=== PATIENT | female | born 1965 | race Caucasian/White ===

== ENCOUNTER 2016-07-13 02:46 | Inpatient (IN) | payer OTHER, SELFPAY ==
[~2016-07-13] VITALS: Ht 165.1 cm; Wt 104.0 kg
--- NOTE | ~2016-07-13 | HP ---
PATIENT'S NAME: ALLI LOPEZ [facility] AGE: 51 Y [address] ROOM: [address] [address] LOCATION: GPCU ADMIT DATE: 07/13/2016 History & Physical DISCHARGE DATE: FAMILY PHYSICIAN: TREE COVARRUBIAS MD ATTENDING PHYSICIAN: REMI QUIROZ DATE OF SERVICE: CHIEF COMPLAINT: Left jaw pain and left shoulder pain. HISTORY OF PRESENT ILLNESS: This is a 51-year-old female with a past history of hypertension. The patient states that she woke up early this morning with pounding sensation in her chest. The patient was also cold and clammy and felt diaphoretic at that point of time. She then started having left jaw pain. She currently rates her pain as a 3/10 in intensity. She still has a left jaw pain. She also complains of pain between her shoulder blades radiating to her back. She denies any chest pain currently. Denies any abdominal pain, diarrhea, or constipation. She states that while getting to the ER, she was nauseous and vomited once prior to getting to the ER. Denies any lightheadedness. Denies any head trauma, loss of consciousness, or seizures. Denies any fever history. No other complaints at this point in time. REVIEW OF SYSTEMS: A 10-point review of systems was done and was otherwise negative except as mentioned above. HOME MEDICATIONS: Per JUN. ALLERGIES: REVIEWED TO LATEX, CELEBREX, AND ANAPROX. PAST MEDICAL HISTORY: 1. Chronic back pain. 2. Headaches. 3. Past history of hypertension, resolved with weight loss. PAST SURGICAL HISTORY: Reviewed. 1. D and C. 2. x4. 3. Epidural steroid injection. 4. Cholecystectomy. PATIENT'S NAME: ALLI LOPEZ [facility] AGE: 51 Y [address] ROOM: [address] [address] LOCATION: GPCU ADMIT DATE: 07/13/2016 History & Physical DISCHARGE DATE: FAMILY PHYSICIAN: TREE COVARRUBIAS MD ATTENDING PHYSICIAN: REMI QUIROZ 5. Left forearm surgery. 6. Hysterectomy. SOCIAL HISTORY: Denies smoking, use of occasional alcohol is reported. FAMILY HISTORY: Father with heart disease. No history of cancer reported. PHYSICAL EXAMINATION: VITAL SIGNS: Temperature 98.7, pulse 100 and regular, respirations 16, blood pressure 139/84, saturation 96% on room air. GENERAL: The patient is alert and oriented x3. Follows all commands, in no acute distress. HEENT: Head: Normocephalic and atraumatic. Pupils are equal, round, and reactive to light. Extraocular muscles are intact. Oropharynx moist. No tenderness to palpation, left jaw. No tenderness to palpation, temporal areas. NECK: Supple. No nuchal rigidity. HEART: Regular rate and rhythm. LUNGS: Clear to auscultation bilaterally. ABDOMEN: Soft, nontender, nondistended. Bowel sounds are present. EXTREMITIES: No clubbing, cyanosis, or edema. VASCULAR: Pulses are 2+ distally bilaterally. NEUROLOGIC: The patient is alert and oriented x3. She follows all commands, moves all extremities. Cranial nerves 2 through 12 are grossly intact. Deep tendon reflexes are 2+/4. SPINE: No tenderness to palpation in the cervical, thoracic, or lumbosacral spine. DIAGNOSTIC STUDIES: EKG was done in the ER. Initial EKG showed moderate ST depression. A repeat EKG done later showed resolution of changes and no acute ST changes. It shows sinus rhythm with a rate of 98 beats per minute. A 2D echo is pending at this point of time. CPK 143, subsequently 140. Troponin I less than 0.04 and subsequently was 0.094. CBC showed a white count of 8.3, hemoglobin 14.7, hematocrit 42.8, platelets 189. CMP showed sodium 141, potassium 2.7, chloride 100, bicarb 26, BUN 16, creatinine 1.2, glucose 165, calcium 9.6, total protein 7.9, albumin 4.1, AST 23, ALT 31, alkaline phosphatase 60, total bilirubin 0.6, magnesium 1.6, anion gap 17.7, globulin 3.8. GFR 47, PT 10.4, INR 1.0, and PTT 26, CK-MB 2.2. Chest x-ray was done and showed no acute cardiopulmonary abnormality. ASSESSMENT AND PLAN: A 51-year-old female presenting with chest and jaw pain. PATIENT'S NAME: ALLI LOPEZ [facility] AGE: 51 Y [address] ROOM: [address] [address] LOCATION: [facility] ADMIT DATE: 07/13/2016 History & Physical DISCHARGE DATE: FAMILY PHYSICIAN: TREE COVARRUBIAS MD ATTENDING PHYSICIAN: REMI QUIROZ 1. [id number] elevation myocardial infarction. The patient has elevated cardiac enzymes. She complains of chest discomfort radiating to middle of her back and into her jaw. I will place her on the ACS protocol. She is currently on a heparin drip. We will get a Cardiology consult. A 2D echo will be obtained in the morning. We will trend cardiac enzymes q.6 hours x3. Further recommendations per Cardiology. 2. History of hypertension. The patient had history of hypertension in the past, but is not currently on any medication. She states that she lost weight and subsequently is off medications. Monitor her blood pressure. 3. Hypokalemia, unclear etiology. We will replace KCl. Evaluate for hypokalemia. 4. Deep vein thrombosis prophylaxis. The patient is currently on heparin GTT. 5. Code status: Full code. Discussed with the patient at the time of admission. 6. History of reactive airway disease, stable for now. 7. History of chronic back pain. Continue on home medications. REMI QUIROZ MD MT/dawna /[id number] D: [id number] T: [id number] HISTORY & PHYSICAL
--- NOTE | ~2016-07-13 | CON ---
PATIENT'S NAME: ALLI LOPEZ [facility] AGE: 51 Y [address] ROOM: [place] [id number] LOCATION: GPCU ADMIT DATE: 07/13/2016 Consultation DISCHARGE DATE: FAMILY PHYSICIAN: TREE COVARRUBIAS MD ATTENDING PHYSICIAN: REMI QUIROZ DATE OF CONSULTATION: 07/13/2016 REFERRING PHYSICIAN: Denae Murdock MD CARDIOLOGY CONSULTATION REASON FOR CARDIOLOGY CONSULTATION: Chest pain. HISTORY OF PRESENT ILLNESS: This is a 51-year-old female who woke up with a rapid irregular heart rate. She did not actually check her pulse, but she did vomit twice on her way to the hospital for evaluation. She also had complaints of jaw pain as well as pain between her scapula. She states she has never had this type of pain before in her past. She did undergo a stress test about 5 years ago and was recently diagnosed with hypertension, after she gained 12 pounds following steroid administration over the summer for respiratory issues. She denies abdominal pain or diarrhea. She also denies presyncope or syncope. PAST MEDICAL HISTORY: 1. Hypertension. 2. Chronic back pain. 3. History of headaches. PAST SURGICAL HISTORY: 1. x4. 2. Cholecystectomy. 3. D and C. 4. Left forearm surgery. 5. Hysterectomy. FAMILY HISTORY: The patient's mother had a history of hypothyroidism as well as autoimmune disorder. Her father had a history of congestive heart failure and coronary artery disease. Also of note, her mother had a history of breast cancer. She has one sibling with a history of breast cancer. SOCIAL HISTORY: The patient is a former cigarette smoker. She smoked half a pack per day for about four years and quit smoking in 1984. She admits to alcohol use on 1 day PATIENT'S NAME: ALLI LOPEZ [facility] AGE: 51 Y [address] ROOM: [place] [address] LOCATION: GPCU ADMIT DATE: 07/13/2016 Consultation DISCHARGE DATE: FAMILY PHYSICIAN: TREE COVARRUBIAS MD ATTENDING PHYSICIAN: REMI QUIROZ a week and on those days, she will have one drink at a time. She denies illicit drug use. CURRENT MEDICATIONS: 1. Dulera 200/5 mcg 2 puffs inhaled twice daily. 2. Heparin IV per ACS protocol. 3. Benadryl 25 mg p.o. on-call to the catheterization lab. 4. Levothyroxine 25 mcg p.o. daily. 5. Lopressor 25 mg p.o. twice daily. 6. Neurontin 300 mg p.o. twice daily. 7. Valium 5 mg p.o. head and neck surgeon to the catheterization lab. ALLERGIES: MEDICATION ALLERGIES INCLUDE: CODEINE CAUSING NAUSEA AND VOMITING. PERCOCET CAUSING NAUSEA AND VOMITING. NAPROXEN CAUSING ANAPHYLAXIS. MOBIC CAUSING HIVES. CELEBREX CAUSING HIVES. VIOXX CAUSING HIVES WELL BANANA, LATEX, AND AVOCADO CAUSING ITCHING. SHE ALSO HAS NOTED WEIGHT GAIN ON LYRICA. REVIEW OF SYSTEMS: Pertinent positive review of systems are listed in the HPI. All other review of systems evaluated and negative. LABORATORY DATA AND IMAGING STUDIES: Diagnostics: CMS evaluation shows a sodium of 141, potassium 2.7, BUN of 16, creatinine 1.2, and glucose of 165. She has a magnesium of 1.6. Lipid evaluation showed a total cholesterol of 192, triglycerides are 133, HDL of 49, and LDL of 117. She has a D-dimer of 0.77. CBC evaluation shows a white blood cell count of 8.3, hemoglobin of 14.7, hematocrit of 42.8, and platelets of 189,000. Cardiac enzyme trend shows a CPK of 143, then 140, then 127. CK- MB of 2.0, then 2.2, then 2.1, and troponin I of less than 0.04, then 0.094, and finally 0.102. PHYSICAL EXAMINATION: VITAL SIGNS: Temperature 98.4, pulse 90, respirations 18, blood pressure 131/83, and O2 saturation 93% on room air. The patient weighs 104 kg. SKIN: [place], warm, and dry. EYES: Sclerae clear. No xanthelasmas. ENT: Oral mucosa is pink and moist. No jugular venous distention or carotid bruits. CHEST: Respirations are even and unlabored. LUNGS: Clear to auscultation. HEART: Regular rate and rhythm. Normal S1 and S2. No murmurs, rubs, or gallops. ABDOMEN: Soft and nontender. MUSCULOSKELETAL: Gait is normal. PATIENT'S NAME: ALLI LOPEZ [facility] AGE: 51 Y [address] ROOM: [address] [address] LOCATION: GPCU ADMIT DATE: 07/13/2016 Consultation DISCHARGE DATE: FAMILY PHYSICIAN: TREE COVARRUBIAS MD ATTENDING PHYSICIAN: REMI QUIROZ EXTREMITIES: Peripheral pulses palpable. PSYCHIATRIC: Alert and oriented. Mood and affect are appropriate. IMPRESSION AND PLAN: Per Dr. Murdock: 1. [id number] myocardial infarction. 2. Hypertension. 3. Hypokalemia. Currently being replaced orally by the Hospitalist Service. Plan will be to proceed with a heart catheterization to fully evaluate coronary anatomy with a possible percutaneous intervention if needed. We will also check an echocardiogram to fully evaluate ejection fraction as well as to look for wall motion or valvular abnormalities. We will start Lipitor 80 mg p.o. daily as well as normal saline at 150 mL/h, and an aspirin 81 mg p.o. daily. We will continue to monitor, evaluate, and treat as appropriate. Thank you for this consult. Thank you for allowing [facility] to interact in the care of this patient. STEVO COOK APRN FOR PAULO-MD THIERRY PEARL/dawna /[id number] d: 07/13/16 1717 t: 07/19/16 1754, CONSULTATION REPORT
--- NOTE | ~2016-07-13 | ECHO ---
Transthoracic Echocardiography Report (TTE) Demographics Patient Name ALLI LOPEZ Date of Study 07/13/2016 J Patient Number [id number] Visit Number [id number] Date of 1965 Room Number G6307 Gender Female Number Age 51 year(s) Referring Kaitlyn Betts MD Roller Printing Supervisor Khadijah Emmanuel RVT Physician Michelle Lamb MD Physician Interpreting Mathieu Meza Corporate Recruiter Physician [place] MARINO Supervising Ordering Kaitlyn Betts MD, MD/MLP Physician Nurse Stress Unified Communications Engineer Conclusions Contractility Score Summary Normal Left Ventricular contractility was noted. Summary The estimated left ventricular ejection fraction is 60%. Diastolic assessment reveals Grade I diastolic dysfunction. Moderate concentric left ventricular hypertrophy. Mild mitral regurgitation by color Doppler. Negative bubble study. Procedure Type of Study TTE procedure:2D Echocardiogram, M-Mode, Doppler , Color Doppler, Contrast study. Procedure Date Date: 07/13/2016 Start: 11:11 AM Study Location: Inpatient Portable Technical Quality: Adequate visualization Indications:NSTEMI. Appropriate Use Criteria: 9 Patient Status: Routine HR: 83 bpm BP: 126/73 mmHg Allergies - Latex. - Other:(Celebrex, Anaprox). M-Mode/2D Measurements LV Diastolic Dimension: 3.59 cm LV Systolic Dimension: 2.06 cm LV Septum Diastolic: 1.34 cm LV PW Diastolic: 1.39 cm AO Root Dimension: 2.6 cm Cardiac Output: 5.11 l/min AV Cusp Separation: 2.2 cm RV Diastolic Dimension: 2.8 cm LVOT: 2 cm LVOT VTI: 19.6 cm RV Base: 2.74 cm LV Stroke volume: 61.54 ml RV Length: 6.09 cm TAPSE: 2.17 cm TDI-S': 14.3 cm/s Doppler Measurements AV Peak Velocity: 1.11 m/s MV Peak E-Wave: 0.45 m/s AV Peak Gradient: 4.93 mmHg MV Peak A-Wave: 0.56 m/s AV Mean Gradient: 3 mmHg MV E/A Ratio: 0.81 LVOT Peak Velocity: 0.96 m/s MV P1/2t: 81 msec Estimated RAP:5 mmHg PV Peak Velocity: 0.64 m/s E' Septal Velocity: 0.07 m/s PV Peak Gradient: 1.63 mmHg E' Lateral Velocity: 0.12 m/s A' Septal Velocity: 0.1 m/s A' Lateral Velocity: 0.17 m/s Findings Left Ventricle Diastolic assessment reveals Grade I diastolic dysfunction. Moderate concentric left ventricular hypertrophy. Right Ventricle Normal right ventricle structure and function. Left Atrium Normal left atrial size. Right Atrium Normal appearing right atrial size. Negative bubble study. Mitral Valve Mild mitral regurgitation by color Doppler. Aortic Valve Normal aortic valve structure and function. Tricuspid Valve Trivial tricuspid regurgitation by color Doppler. Pulmonic Valve Normal pulmonic valve structure and function. Pericardial Effusion Epicardial fat pad noted. Miscellaneous Visualized portions of the aortic root and ascending aorta appear normal in size. Pleural Effusion No evidence of pleural effusion. Contractility Score LV regional wall motion:(0-Non visualized 1-Normal 2-Hypokinesis 3-Akinesis 4-Dyskinesis 5-Aneurysm) Signature dtt: Denae Murdock dtd: 07/13/16 1111 Physician Self Edit
--- NOTE | ~2016-07-13 | CATH ---
Cardiac Diagnostic Report Demographics Patient Name JESSICA Figueroa Gender Female Date of 1965 Age 51 year(s) Patient Number [id number] Date of Study 07/13/2016 Visit Number [id number] Room Number G6307 [place] [id number] Ht 165.1 cm Wt 104.9 kg Referring Efstratiou Primary Physician Physician Susana Lamb MD Performing Efstratiou Secondary Physician Physician Susana Burris MD Diagnostic Efstratiou Assisting Physician Physician Susana Burris MD Interventional Efstratiou Physician Fishery Biologist Physician Susana Burris MD Findings and Conclusions Diagnostic Findings and Conclusion Non critical CAD with the exception of the circumflex ostium that appears narrowed possibly from a combination of spasm and intramural hemorrhage. Diagnostic Recommendations Medically treat. Procedure Description The patient was brought to the diagnostic cardiac catheterization-EP laboratory in the fasting, non-sedated state. Informed consent was obtained in the written and verbal form after the risks and benefits were explained. The patient had no further questions and agreed to proceed. The planned puncture-incision site(s) were shaved and prepped with ChloraPrep and draped in the usual sterile manner. Conscious sedation, supplemental oxygen, and pain control medications were delivered by a registered nurse under physician guidance. Surface ECG rhythm, blood pressure measurement, and pulse oximetry were monitored throughout the procedure. Arterial access. The access site was infiltrated with lidocaine. The vessel was entered with the Seldinger technique. A sheath was advanced into the vessel and used for catheter placement. Selective left coronary angiography. A catheter was advanced into the left coronary vessel ostium under Fluoroscopic guidance. Contrast was injected by hand. Images were obtained in multiple projections. Selective right coronary angiography. A catheter was advanced into the right coronary vessel ostium under fluoroscopic guidance. Contrast was injected by hand. Images were obtained in multiple projections. Left heart catheterization. A catheter was advanced across the aortic valve to the left ventricle under fluoroscopic guidance. Resting hemodynamics were obtained. FFR measurement was attempted. The vessel was entered with a guiding catheter. The FFR wire was normalized and but was unable to advance across the lesion. Arterial artery hemostasis was achieved. The patient was transferred to a regular nursing floor via cart accompanied by a nurse. The patient left the laboratory in stable condition. Diagnostic Cath Status: Urgent Procedure Procedure Type Diagnostic procedure:Angiography:, Coronary Angios w/[facility] Indications: Chest pain and Non-ST elevation OH. The procedure was explained in detail to the patient. Risks, complications and alternative treatments were reviewed. Written consent was obtained. Medications Reviewed with Patient prior to Procedure. Angiographic Findings Dominance: Right Cardiac Arteries and Lesion Findings LMCA: Normal (0% Stenosis).Patent, short LAD: Diagonal patent Lesion on Mid LAD: 30% stenosis . LCx: OM patent Lesion on Prox CX: Ostial.50% stenosis . FFR + + + + !FFR !Stage/Medication !Dosage ! + + + + RCA: PL patent PDA patent Lesion on Prox RCA: 10% stenosis . Coronary Tree Procedure Data Procedure Date Date: 07/13/2016Start: 01:05 PMEnd: 01:47 PM Entry Locations - Retrograde Percutaneous access was performed through the Right Radial artery (Primary location). A 6 Fr sheath was inserted. Unsuccessful closure attempt was performed using: an R band. Hemostasis was successfully obtained using Mechanical Compression. Closure Comments: 10 cc of air in the R band. Procedure Medications Order and Administration + + + + + !Time !Medication !Dosage !Route ! + + + + + !07/13/2016 01:00 PM !Versed !1 mg !I.V. ! + + + + + !07/13/2016 01:03 PM !Fentanyl !25 mcg !I.V. ! + + + + + !07/13/2016 01:06 PM !Radial Heparin (ACC_3) !5000 units !I.A. ! + + + + + !07/13/2016 01:06 PM !Radial Nitroglycerin !100 mcg !I.A. ! + + + + + !07/13/2016 01:07 PM !Radial Verapamil !3 mg !I.A. ! + + + + + !07/13/2016 01:07 PM !Oxygen !2 l/min !NC ! + + + + + !07/13/2016 01:07 PM !0.9% NaCl !200 ml !I.V. bolus ! + + + + + !07/13/2016 01:17 PM !Nitroglycerin !200 mcg !I.C. ! + + + + + !07/13/2016 01:27 PM !Versed !1 mg !I.V. ! + + + + + !07/13/2016 01:27 PM !Heparin (ACC_3) !3000 units !I.V. bolus ! + + + + + !07/13/2016 01:42 PM !Plavix (ACC_8) !600 mg !P.O. ! + + + + + Devices Used - A6 Fr. BS JR 4 Diag. Catheterwas used for:Right coronary angiography. - A6 Fr. BS JL 3.5 Diag. Catheterwas used for:Left coronary angiography.Unable to cannulate the vessel. - A6 Fr. Ultimate 1 Diag. Catheterwas used for:Left coronary angiography. - A6 Fr. XBLAD 3.5 Guide Catheterwas used for:LAD Intervention. Contrast Material - Isovue [id number] ml Fluoroscopy Time: Diagnostic: 8:12 minutes. Total: 8:12 minutes. Fluoroscopy Dose: Diagnostic: 1190 mGy. Total: 1190 mGy. Estimated Blood Loss: 20 ml. Additional ACC PCI Information PCI Indication:PCI for high risk Non-STEMI or unstable angina. Medical History Allergies - Latex. - Other:(Celebrex, Anaprox). Risk Factors The patient risk factors include:hypertension, family history of premature CAD, last creatinine: 0.9 mg/dl and creatinine clearance: 121.09 ml/min. Admission Data Admission Date: 07/13/2016 Admission Time: 05:45 AM Admit Source: Emergency department Admission Medications + +------+-------+ + + + + !Medication!Dosage!Times !Last !Last !Administered !Comments ! ! ! !Per Day!Delivery !Delivery ! ! ! ! ! ! !Date !Time ! ! ! + +------+-------+ + + + + !Aspirin ! ! ! ! !Yes ! ! !(any) ! ! ! ! ! ! ! + +------+-------+ + + + + Clinical Evaluation Leading to Procedure - The patient's CAD presentation was assessed as: Non-STEMI. 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 Snapshots Hemodynamics Condition: Rest O2 Consumption: Estimated: 207.59Heart Rate: 74 bpm Pressures (mmHg) +-----+ + !Site !Pressure ! +-----+ + !LV !91/0 ,5 ! +-----+ + !LV !92/0 ,5 ! +-----+ + !AO !89/56 (70) ! +-----+ + !LV !92/0 ,7 ! +-----+ + !AO !91/57 (72) ! +-----+ + !AO !89/52 (70) ! +-----+ + Valve Gradients and Areas + +---------+---------+---------+ +---------+ + !Valve !Peak !Mean !Area !Index !Flow !Source ! + +---------+---------+---------+ +---------+ + !Aortic !3 !5 ! ! ! ! ! + +---------+---------+---------+ +---------+ + !Aortic !3 !5 ! ! ! ! ! + +---------+---------+---------+ +---------+ + Shunts Oxygen Values O2 Capacity 199.92 O2 Consumption 207.59 Signatures dtt: Denae Murdock dtd: 07/13/16 1305 Physician Self Edit
--- NOTE | ~2016-07-13 | ER ---
PATIENT'S NAME: ALLI LOPEZ [facility] AGE: 51 Y [address] ROOM: [place] [address] LOCATION: GPCU ADMIT DATE: 07/13/2016 ER/Outpatient Report DISCHARGE DATE: FAMILY PHYSICIAN: TREE COVARRUBIAS MD ATTENDING PHYSICIAN: REMI QUIROZ HISTORY OF PRESENT ILLNESS: This is a 51-year-old female, who presents today with chief complaint of left- sided jaw pain, left back of the neck pain, palpitation, chest tightness and some pain in the back of her like left scapular area. She says it woke her up from sleep approximately at 1:00 a.m. which is about 2 hours ago. The patient says she felt a little bit diaphoretic, was nauseous and had 1 episode of vomiting and some diaphoresis as well, but says feels better. She takes an aspirin daily when she goes to work because of varicose veins, otherwise does not take it normally. Currently says that, she does not feel palpitations anymore but does feel that jaw pain and left back of the neck pain associated with some chest tightness and that pain in the back of her scapula. No other complaints at this time. PAST MEDICAL HISTORY: Includes: 1. Chronic back pain. 2. Headaches. 3. Asthma. PAST SURGICAL HISTORY: Includes: 1. D and C. 2. x4. 3. Steroid injections for back pain. 4. Cholecystectomy. 5. Recent right knee meniscus repair. 6. Hysterectomy. 7. Left forearm surgery. SOCIAL HISTORY: She does not smoke. Drinks socially. Denies any drug use. MEDICATIONS: 1. Levothyroxine. 2. Cetirizine. 3. Ibuprofen. 4. ProAir. 5. Symbicort. PATIENT'S NAME: ALLI LOPEZ [facility] AGE: 51 Y [address] ROOM: [place] [address] LOCATION: GPCU ADMIT DATE: 07/13/2016 ER/Outpatient Report DISCHARGE DATE: FAMILY PHYSICIAN: TREE COVARRUBIAS MD ATTENDING PHYSICIAN: RMEI QUIROZ ALLERGIES: 1. LATEX. 2. CELEBREX. 3. ANAPROX. REVIEW OF SYSTEMS: Reviewed by me and negative with the exception of those discussed in the HPI. PHYSICAL EXAMINATION: VITAL SIGNS: The patient is 5 feet and 5 inches. She weighs 104.9 kilos. Her blood pressure is 139/84, heart rate 100, respiratory rate 10, temp is 98.3 tympanic, SpO2 is 96% on room air. GENERAL: The patient is obese white female. She does not appear in any acute distress at this time. She is not diaphoretic or tachycardic. She is not grabbing her chest. Well-appearing and nontoxic. HEENT: Pupils are equal and reactive to light. NECK: She has no JVD. HEART: Her heart rate right now is about 92 beats per minute and regular. No ectopy or PVCs on the monitor. LUNGS: Her lung sounds sound clear. She has no chest wall tenderness. ABDOMEN: Soft, nontender, nondistended. Normal on inspection. Normoactive bowel sounds. EXTREMITIES: She has no pedal edema. Moves all extremities. NEUROLOGIC: Intact. No neuro focal deficits. A and O x4. EMERGENCY ROOM COURSE: We checked initial set, so we did initial EKG which on my read shows a heart rate of 98 beats per minute, sinus rhythm. Normal MO interval, normal QTc. There are ST depressions in II, III, AVF, they are about 1 mm also in V5 and V6. We also checked some blood work. CBC showed white count of 8.3, H and H is 14.7 and 42.8, platelets are 189. No bandemia. PTT was 26, PT was 10.4, INR was 1. CMS showed sodium of 141, potassium 2.7, chloride 100, CO2 26, anion gap 17.7, glucose 165, BUN is 16, creatinine is 1.2, alkaline phosphatase was 60, AST was 23, ALT 31, GFR 47, magnesium 1.6. CPK 143. CK- MB was 2 and troponin was less than 0.04. I also gave the patient 4 chewable aspirin. I went back and reassessed her. She says that she felt about the same, still had this chest pressure and slight mid back pain. I did keep her for a second set of enzymes. We repeated the EKG. These ST findings have seemed to resolve. I do not see any ST depressions at this time in any of the leads that were seen in before. However, the repeat troponin showed bump in the troponin from undetectable to 0.094 which is not elevated. So, the patient has been ruled in for an NSTEMI. We will start her on a heparin drip. I also will repeat her potassium which was 2.7 here and we will have her admitted to the PCU. I discussed with Dr. Qurioz, admitted in stable condition. PATIENT'S NAME: ALLI LOPEZ [facility] AGE: 51 Y [address] ROOM: [place] [address] [facility] ADMIT DATE: 07/13/2016 ER/Outpatient Report DISCHARGE DATE: FAMILY PHYSICIAN: TREE COVARRUBIAS MD ATTENDING PHYSICIAN: REMI QUIROZ IMPRESSION: Chest pain, non-ST segment elevation myocardial infarction. MD DEIDRE QUINTANILLA/dawna /[id number] d: 07/13/16630 t: 07/13/16 1818, OUTPATIENT REPORT
--- NOTE | ~2016-07-13 | DS ---
PATIENT'S NAME: ALLI LOPEZ [facility] AGE: 51 Y [address] ROOM: [place] [address] LOCATION: GPCU ADMIT DATE: 07/13/2016 Discharge Summary DISCHARGE DATE: 07/14/2016 FAMILY PHYSICIAN: Adonis Martinez MD ATTENDING PHYSICIAN: Bigg Sahni ADMITTING DIAGNOSIS: Non-ST elevation myocardial infarction. DISCHARGE DIAGNOSIS: Non-ST elevation myocardial infarction. SECONDARY DIAGNOSES: 1. Hypertension. 2. Hyperlipidemia. PROCEDURES PERFORMED: Coronary angiogram was done on July 13, 2016. CONSULTATIONS: Cardiology. HISTORY OF PRESENT ILLNESS: The patient is a 51-year-old female with past medical history of hypertension, who presented here with chest pain. On initial evaluation, the patient was found to have elevated troponin, and was admitted to inpatient care for further workup. HOSPITAL COURSE: The patient was found to have elevated troponin, and was also complaining about chest pain. The patient was treated for NSTEMI (non-ST- elevation myocardial infarction) with heparin drip, aspirin, beta-sandy, and statin. The patient had coronary angiogram done on July 13, 2016. Coronary angiogram showed moderate disease with no obstructive changes. The patient tolerated the procedure well. The patient also was noted to have elevated d-dimer. V/Q scan showed no low probability for pulmonary embolism. The patient's symptoms improved during stay. DISCHARGE PLAN: The patient was discharged home in stable condition, to follow up with it applications analyst as an outpatient. CONDITION: Stable. DISPOSITION: Home. DISCHARGE MEDICATIONS: 1. Baby aspirin. 2. Albuterol. PATIENT'S NAME: ALLI LOPEZ [facility] AGE: 51 Y [address] ROOM: [place] [address] LOCATION: GPCU ADMIT DATE: 07/13/2016 Discharge Summary DISCHARGE DATE: 07/14/2016 FAMILY PHYSICIAN: Adonis Martinez MD ATTENDING PHYSICIAN: Bigg Sahni 3. Symbicort. 4. Synthroid 25 mcg. 5. Gabapentin 300 mg b.i.d. 6. Epinephrine to be used as p.r.n. for anaphylaxis. 7. Lopressor 25 mg b.i.d. 8. Plavix 75 mg daily. 9. Lipitor 80 mg daily. 10. Amlodipine 2.5 mg daily. DISCHARGE INSTRUCTIONS: The patient is to follow up with Cardiology. DISCHARGE FOLLOWUP: The patient is to follow up with Cardiology and primary care physician. Greater than 30 minutes was spent on discharge planning. MD ANA M LANDA/dawna /[id number] d: 07/15/16 0444 t: 07/17/16 1134, DISCHARGE SUMMARY
[~2016-07-13 02:46] MED LIST: ADVIL200 MG PO; ASPIRIN (CHILDR81 MG PO; BENADRYL25 MG PO; LEVOTHROID (SY25 MCG PO; OCEAN37.5 ML NOSE; PERCOCET 5-3251 EACH PO; PROAIR HFA8.5 GM INH; SYMBICORT 16010.2 GM INH; TUMERIC PO; ZOFRAN4 MG PO; ZYRTEC10 M3 PO
[2016-07-13 03:14] LABS: BASOPHIL # 0.1 K/uL (0.0-0.2); BASOPHIL % 0.8 %; EOSINOPHIL # 0.3 K/uL (0.0-0.5); EOSINOPHIL % 3.8 %; HEMATOCRIT 42.8 % (33.0-46.0); HEMOGLOBIN 14.7 g/dL (10.0-15.0); IMMATURE GRANULOCYTE % 0.2 %; LYMPHOCYTE # 2.8 K/uL (0.8-4.0); LYMPHOCYTE % 33.1 %; MCH 30.1 pg (27.0-34.0); MCHC 34.3 gm/dL (32.0-36.5); MCV 87.7 fl (83.0-98.0); MONOCYTE # 0.6 K/uL (0.0-1.0); MONOCYTE % 7.4 %; MPV 11.7 fl (9.4-12.4); NEUTROPHIL # (ANC) 4.6 K/uL (1.8-7.8); NEUTROPHIL % 54.7 %; NRBC % 0 /100WBC (0-0.00); PLATELET COUNT 189 K/uL (150-450); RBC 4.88 M/uL (3.50-5.50); RDW-CV 13.3 % (11.9-14.6); WBC 8.3 K/uL (4.0-11.0)
[2016-07-13 03:21] LABS: PROTIME 10.4 SECONDS (9.6-11.1); PTT 26 SECONDS (25-32)
[2016-07-13 03:33] LABS: ALBUMIN 4.1 gm/dL (3.5-5.0); ALK PHOS 60 IU/L (33-138); ALT 31 IU/L (12-78); AST 23 IU/L (10-40); BLOOD UREA NITROGEN 16 mg/dL (6-24); CALCIUM 9.6 mg/dL (8.5-10.5); CHLORIDE 100 mMol/L (96-110); CO2 26 mMol/L (22-32); CPK 143 IU/L (21-215); CREATININE 1.2 mg/dL (0.5-1.1); ESTIMATED GFR (MDRD EQUATION) 47; MAGNESIUM 1.6 mg/dL (1.3-2.6); SODIUM 141 mMol/L (135-145); TOTAL BILIRUBIN 0.6 mg/dL (0.0-1.5); TOTAL PROTEIN 7.9 g/dL (6.0-8.4)
[2016-07-13 03:35] LABS: ANION GAP 17.7 (10.0-19.0); POTASSIUM 2.7 mMol/L (3.7-5.1)
[2016-07-13] MEDS ORDERED: HYGROTON25 MG PO (09:42)
[2016-07-13] MEDS ORDERED: NEURONTIN300 MG PO (09:42)
[2016-07-13] MEDS ORDERED: EPIPEN0.3 MG IM (09:43)
[2016-07-13] MEDS ORDERED: ZYRTEC10 MG PO (09:43)
[2016-07-13 10:03] LABS: BILIRUBIN URINE NEGATIVE (NEGATIVE); BLOOD URINE 25 /UL (NEGATIVE); COLOR URINE YELLOW (YELLOW); GLUCOSE URINE NEGATIVE (NEGATIVE); KETONE URINE NEGATIVE (NEGATIVE); LEUKOCYTES URINE 25 /UL (NEGATIVE); NITRITE URINE NEGATIVE (NEGATIVE); PROTEIN URINE 15 mg/dL (NEGATIVE); TURBIDITY URINE CLEAR (CLEAR); UROBILINOGEN URINE NORMAL (NORMAL)
[2016-07-13 10:16] LABS: BACTERIA URINE MODERATE (NEGATIVE); MUCUS URINE 3+ (NEGATIVE); RBC URINE 0-2 #/HPF (NEGATIVE)
--- NOTE | 2016-07-13 12:00 | NUR ---
Pt is getting echo then heart cath. I did speak with nursing and does not anticipate any dc needs. 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 WIll assist if needed.
[2016-07-13 12:06] LABS: CO2 26 mMol/L (22-32)
[2016-07-13 12:09] LABS: ANION GAP 15.1 (10.0-19.0); BLOOD UREA NITROGEN 16 mg/dL (6-24); CHLORIDE 107 mMol/L (96-110); CREATININE 0.9 mg/dL (0.5-1.1); ESTIMATED GFR (MDRD EQUATION) > 60; POTASSIUM 4.1 mMol/L (3.7-5.1); SODIUM 144 mMol/L (135-145)
--- NOTE | 2016-07-13 12:28 | NUR ---
PATIENT IS A/OX3, VS-131/83, 90, 18, 98.4, 93% ON ROOM AIR. PT. AWOKE AT 0100 WITH POUNDING SENSATION IN HER CHEST. PT. STARTED FEELING COLD, CLAMMY, DIAPHORETIC AT SOME POINT, THEN STARTED HAVING LEFT JAW PAIN AND PAIN THAT RADIATED BACK BETWEEN HER SHOULDER BLADES. PT. DID HAVE SOME NAUSEA AND VOMITED ENROUTE TO ED. PT WAS GIVEN ASA, SL NTG AND STARTED ON A HEPARIN DRIP. TN-T BECAMED ELEVATED AT 0.94, SO PT. WAS THEN ADMITED TO PCU. PT. ARRIVED TO FLOOR AT 0610, GETS UP AD KASH IN ROOM, HAS WALKED THE HALLWAYS SEVERAL TIMES. HX: CHRONIC BACK PAIN, HEADACHES AND PAST HTN. ACS PROTOCOL STARTED AND CARDIOLOGY CONSULTED.
--- NOTE | 2016-07-13 17:32 | NUR ---
Significant Event: A/OX3, VSS ON ROOM AIR. HEART CATH NEGATIVE, WILL TREAT MEDICALLY. RIGHT RADIAL CATH SITE IN SOFT, NO HEMATOMA OR OOZING NOTED, TR-BAND REMOVED @ 1730, DRESSING OF BAND-AID/COBAN APPLIED. REMINDED PT. NOT TO USE RIGHT ARM. RIGHT AC IV HAS NS @ 125mL/HR X1.5L. NO COMPLAINTS OF PAIN. ZOFRAN GIVEN AT 1025 FOR NAUSEA. VQ SCAN DONE, WAITING ON RESULTS. UP SBA IN ROOM. POSSIBLE D/C TO HOME IN AM. PT HAD A 15 SECOND BURST OF SVT AT 1436, HR WENT UP TO 180'S THEN BACK DOWN TO 70'S, STEVO NOTIFIED. PT. VOIDS FINE, NO BM TODAY. Follow up: CONTINUE WITH POC.
[2016-07-14 03:43] LABS: BASOPHIL # 0.1 K/uL (0.0-0.2); BASOPHIL % 0.8 %; EOSINOPHIL # 0.4 K/uL (0.0-0.5); EOSINOPHIL % 6.5 %; HEMATOCRIT 36.1 % (33.0-46.0); HEMOGLOBIN 12.3 g/dL (10.0-15.0); IMMATURE GRANULOCYTE % 0.2 %; LYMPHOCYTE % 32.1 %; MCH 29.9 pg (27.0-34.0); MCHC 34.1 gm/dL (32.0-36.5); MCV 87.8 fl (83.0-98.0); MONOCYTE # 0.4 K/uL (0.0-1.0); MONOCYTE % 6.5 %; NEUTROPHIL # (ANC) 3.3 K/uL (1.8-7.8); NEUTROPHIL % 53.9 %; NRBC % 0 /100WBC (0-0.00); RBC 4.11 M/uL (3.50-5.50); RDW-CV 13.3 % (11.9-14.6); WBC 6.2 K/uL (4.0-11.0)
[2016-07-14 03:48] LABS: PLATELET COUNT 147 K/uL (150-450)
[2016-07-14 03:58] LABS: ANION GAP 12.6 (10.0-19.0); BLOOD UREA NITROGEN 11 mg/dL (6-24); CALCIUM 8.3 mg/dL (8.5-10.5); CHLORIDE 105 mMol/L (96-110); CO2 26 mMol/L (22-32); CREATININE 0.7 mg/dL (0.5-1.1); ESTIMATED GFR (MDRD EQUATION) > 60; POTASSIUM 3.6 mMol/L (3.7-5.1); SODIUM 140 mMol/L (135-145)
--- NOTE | 2016-07-14 05:03 | NUR ---
Significant Event: A/0X3. UP AB KASH IN ROOM. WALKED HALLS A COUPLE TIMES TONIGHT. TURNS SELF. AFEBRILE. VSS ON RA. HAD ONE EPISODE WHERE SHE STATES SHE WAS WALKING AND FELT A NOTICBLE PAIN IN HER JAW THAT WENT AWAY QUICKLY AND NO C/O SINCE. TYLENOL GIVEN AT 0309 FOR A HEADACHE. PATIENT IS RESTING COMFORTABLY. IV TO R) AC SL. VOIDED 2,150 ML. HAD A BM THIS SHIFT. D/C MEDS PRINTED AND ON CHART. Follow up: CONTINUE WITH POC
[2016-07-14] MEDS ORDERED: LOPRESSOR25 MG PO (12:52)
[2016-07-14] MEDS ORDERED: PLAVIX75 MG PO (12:52)
[2016-07-14] MEDS ORDERED: LIPITOR80 MG PO (12:53)
[2016-07-14] MEDS ORDERED: NORVASC2.5 MG PO (12:54)
--- NOTE | 2016-07-14 14:05 | NUR ---
PATIENT IS A/OX3, VSS ON ROOM AIR. PT. UP AD KASH IN ROOM & HALLS, PT. HAS WALKED SEVERAL TIMES IN HALLS TODAY. RIGHT RADIAL CATH SITE IS COVERED WITH BAND-AID/COBAN, NO DRAINAGE, OOZING, HEMATOMA NOTED TO SITE. INFORMED PT. TO TAKE OF COBAN LATER TODAY. NEW MEDICATIONS, DISMISSAL INSTRUCTIONS, POST RADIAL CATH INSTRUCTIONS GONE OVER WITH PATIENT, NO FURTHER QUESTIONS AT THIS TIME. PT. TO MAKE F/U APTS WITH DOCTORS ON SATURDAY. STEVO COOK APRN GAVE PT. A LIGHT DUTY PRESCRIPTION FOR WORK. ALL BELONGINGS SENT HOME WITH PATIENT. IV TO RIGHT AC WAS REMOVED WITHOUT DIFFICULTLY.
== END 2016-07-14 13:50 | disposition disaster alternative care site (69) | DRG 282 ==
LOC: GMED 02:46 → GPCU 05:44
PROVIDERS: Emergency Medicine; Internal Medicine Cardiovascular Disease; ADMIT Family Medicine
PROC: 4A023N7 Measurement of Cardiac Sampling and Pressure, Left Heart, Percutaneous Approach (ICD-10-PCS; principal; 2016-07-13)
PROC: B211YZZ Fluoroscopy of Multiple Coronary Arteries using Other Contrast (ICD-10-PCS; 2016-07-13)
DX: I21.4 Non-ST elevation (NSTEMI) myocardial infarction (principal); I10 Essential (primary) hypertension; E78.5 Hyperlipidemia, unspecified; E87.6 Hypokalemia; E03.9 Hypothyroidism, unspecified; J44.9 Chronic obstructive pulmonary disease, unspecified; E66.9 Obesity, unspecified; G89.29 Other chronic pain; J45.909 Unspecified asthma, uncomplicated; Z87.891 Personal history of nicotine dependence; Z68.38 Body mass index [BMI] 38.0-38.9, adult
CPT/HCPCS: A9539; A9540; C1769; C1887; C1894; J0153; J1644; J2250; J2405; J3010; J3480; J7030; J7050

== ENCOUNTER → 2016-07-23 | Outpatient (CLI) | payer OTHER ==
[~2016-07-23] MED LIST changes: +EPIPEN0.3 MG IM; +HYGROTON25 MG PO; +LIPITOR80 MG PO; +LOPRESSOR25 MG PO; +NEURONTIN300 MG PO; +NORVASC2.5 MG PO; +PLAVIX75 MG PO; +ZYRTEC10 MG PO
== END | disposition disaster alternative care site (69) ==
LOC: GBCOE 12:02
DX: Z12.31 Encounter for screening mammogram for malignant neoplasm of breast (principal)
CPT/HCPCS: G0202